=== PATIENT | female | born 1985 | race Caucasian/White ===

== ENCOUNTER → 2016-11-18 | Outpatient (CLI) | payer BC ==
[~2016-11-18] MED LIST: ASCO500T87 PO; BIOF1TAB PO; CETI10TA84 PO; DIGECAP3 PO; ECHI400C11 PO; GARL400T4 PO; GING550C PO; IRON1CAP2 PO; MISCCAP80 PO; MULT-506 PO; NORE0.3526 PO; OMEG12006 PO; PSEU60TA80 PO; VITA400C15 PO
== END | disposition home or self-care (01) ==
LOC: C.RDSM 13:20
PROVIDERS: ATTEND Physical Medicine & Rehabilitation Sports Medicine
DX: M22.42 Chondromalacia patellae, left knee (principal)